=== PATIENT | female | born 1990 | race Asian ===

== ENCOUNTER 2021-09-13 20:55 | Inpatient (IN) | payer BC ==
[2021-09-13] MEDS ORDERED: BETAMET ACET/BETAMET NA PH 30 MG/5 ML VIAL IM ONE (21:38)
[2021-09-13] MEDS: LABETALOL HCL 100 MG TABLET (FP) PO SCH (22:00)
[2021-09-13 22:25] LABS: BASO % 0.3 % (0-2.0); EOS % 2.8 % (0-4.5); HEMATOCRIT 35.9 % (32.4-45.2); HEMOGLOBIN 12.4 GM/dL (10.7-15.3); LYMPH % 22.6 % (8-40); MCH 30.7 pg (25.7-33.7); MCHC 34.5 g/dl (32.0-36.0); MEAN PLT VOLUME 7.8 fl (7.5-11.1); MONO % 8.2 % (3.8-10.2); NEUT % 66.1 % (42.8-82.8); PLATELET COUNT 231 10^3/uL (134-434); RBC 4.03 M/mm3 (3.60-5.2); RDW 14.8 % (11.6-15.6); WHITE BLOOD COUNT 7.6 K/mm3 (4.0-10.0)
[2021-09-13 22:33] VITALS: BMI 27.0
[2021-09-13 22:35] LABS: ACTIVATED PTT 32.2 SECONDS (25.2-36.5); INR 0.9 (0.83-1.09); PROTHROMBIN TIME (PATIENT) 10.3 SEC (9.7-13.0)
[2021-09-13 23:01] LABS: BLOOD UREA NITROGEN 10.9 mg/dL (7-18); CALCIUM 8.6 mg/dL (8.5-10.1)
[2021-09-13 23:04] LABS: CREATININE 0.6 mg/dL (0.55-1.3)
[2021-09-13] MEDS ORDERED: BETAMET ACET/BETAMET NA PH 30 MG/5 ML VIAL IM SCH (23:23)
[2021-09-14 02:04] LABS: HIV INTERPRETATION NEGATIVE (NEGATIVE)
[2021-09-14 07:45] LABS: BASO % 0.1 % (0-2.0); EOS % 0.2 % (0-4.5); HEMATOCRIT 37.1 % (32.4-45.2); HEMOGLOBIN 12.2 GM/dL (10.7-15.3); LYMPH % 14.6 % (8-40); MCH 29.6 pg (25.7-33.7); MCHC 32.8 g/dl (32.0-36.0); MEAN CELL VOLUME 90.4 fl (80-96); MEAN PLT VOLUME 8.3 fl (7.5-11.1); MONO % 1.7 % (3.8-10.2); NEUT % 83.4 % (42.8-82.8); PLATELET COUNT 227 10^3/uL (134-434)
[2021-09-14] MEDS ORDERED: INSULIN (LEVEMIR) 100 UNITS/ML UNITS SQ ONE (09:15)
[2021-09-14] MEDS ORDERED: INSULIN (NOVOLOG) ASPART 100 UNITS/ML 10ML VIAL SQ ONE ×5 (09:30→23:40)
[2021-09-14] MEDS: LABETALOL HCL 100 MG TABLET (FP) PO SCH ×2 (09:46→21:21)
[2021-09-14] MEDS ORDERED: INSULIN SLIDING SCALE (NOVOLOG) 1 VIAL SQ ONE ×2 (14:20→15:27)
[2021-09-14] MEDS ORDERED: BETAMET ACET/BETAMET NA PH 30 MG/5 ML VIAL IM SCH (20:00)
[2021-09-14] MEDS ORDERED: INSULIN (LEVEMIR) 100 UNITS/ML UNITS SQ SCH (22:00)
[2021-09-15] MEDS: INSULIN (LEVEMIR) 100 UNITS/ML UNITS SQ SCH ×2 (07:49→21:50)
[2021-09-15] MEDS: INSULIN (NOVOLOG) ASPART 100 UNITS/ML 10ML VIAL SQ SCH ×3 (08:29→17:05)
[2021-09-15] MEDS: LABETALOL HCL 100 MG TABLET (FP) PO SCH ×2 (09:33→21:51)
[2021-09-15] MEDS ORDERED: INSULIN (NOVOLOG) ASPART 100 UNITS/ML 10ML VIAL SQ ONE ×2 (10:34→13:52)
[2021-09-16] MEDS: INSULIN (LEVEMIR) 100 UNITS/ML UNITS SQ SCH (07:24)
[2021-09-16] MEDS: INSULIN (NOVOLOG) ASPART 100 UNITS/ML 10ML VIAL SQ SCH (08:13)
[2021-09-16] MEDS: LABETALOL HCL 100 MG TABLET (FP) PO SCH (10:10)
[2021-09-16 10:11] VITALS: BP 131/73; PULSE 97; TEMP 98
== END 2021-09-16 10:26 | disposition home or self-care (01) | DRG 832 ==
LOC: JLDR 20:55 → J3W 23:00
PROVIDERS: ADMIT Obstetrics & Gynecology Maternal & Fetal Medicine; ATTEND Obstetrics & Gynecology Maternal & Fetal Medicine
DX: O16.3 Unspecified maternal hypertension, third trimester (principal); O24.913 Unspecified diabetes mellitus in pregnancy, third trimester; O30.033 Twin pregnancy, monochorionic/diamniotic, third trimester; Z3A.34 34 weeks gestation of pregnancy; Z79.4 Long term (current) use of insulin
CPT/HCPCS: 36415; 80048; 82962; 85025; 85610; 85730; 86780; 86850; 86900; 86901; 87389; 96372; C9803; U0003; U0005

== ENCOUNTER 2021-09-20 17:35 | Inpatient (IN) | payer BC ==
[2021-09-20] MEDS: DEXTROSE 5%-LACTATED RINGERS 1,000 ML IV SCH (20:20)
[2021-09-20] MEDS ORDERED: LABETALOL HCL 100 MG TABLET (FP) ONE (20:27)
[2021-09-20] MEDS: LABETALOL HCL 100 MG TABLET (FP) PO SCH (20:30)
[2021-09-20 20:39] LABS: BASO % 0.2 % (0-2.0); EOS % 2.9 % (0-4.5); HEMATOCRIT 34.1 % (32.4-45.2); HEMOGLOBIN 11.3 GM/dL (10.7-15.3); LYMPH % 25.5 % (8-40); MCH 29.8 pg (25.7-33.7); MCHC 33.1 g/dl (32.0-36.0); MEAN CELL VOLUME 90.1 fl (80-96); MEAN PLT VOLUME 8.4 fl (7.5-11.1); MONO % 8.3 % (3.8-10.2); NEUT % 63.1 % (42.8-82.8); PLATELET COUNT 205 10^3/uL (134-434); RBC 3.78 M/mm3 (3.60-5.2); RDW 14.8 % (11.6-15.6); WHITE BLOOD COUNT 8.2 K/mm3 (4.0-10.0)
[2021-09-20 20:48] LABS: INR 0.92 (0.83-1.09); PROTHROMBIN TIME (PATIENT) 10.6 SEC (9.7-13.0)
[2021-09-20 20:51] LABS: ACTIVATED PTT 29.8 SECONDS (25.2-36.5)
[2021-09-20 21:14] LABS: CALCIUM 9.3 mg/dL (8.5-10.1)
[2021-09-20 21:17] LABS: CREATININE 0.6 mg/dL (0.55-1.3)
[2021-09-20 21:42] LABS: BLOOD UREA NITROGEN 11.5 mg/dL (7-18)
[2021-09-21] MEDS: LABETALOL HCL 100 MG TABLET (FP) PO SCH ×4 (02:10→22:14)
[2021-09-21] MEDS ORDERED: INSULIN (NOVOLOG) ASPART 100 UNITS/ML 10ML VIAL SQ SCH (09:00)
[2021-09-21] MEDS ORDERED: INSULIN SLIDING SCALE (NOVOLOG) 1 VIAL SQ ONE (09:11)
[2021-09-21] MEDS: INSULIN (NOVOLOG) ASPART 100 UNITS/ML 10ML VIAL SQ SCH ×2 (09:13→17:01)
[2021-09-21] MEDS: INSULIN (LEVEMIR) 100 UNITS/ML UNITS SQ SCH (09:13)
[2021-09-22] MEDS: INSULIN (NOVOLOG) ASPART 100 UNITS/ML 10ML VIAL SQ SCH ×2 (08:36→16:40)
[2021-09-22] MEDS: INSULIN (LEVEMIR) 100 UNITS/ML UNITS SQ SCH (09:11)
[2021-09-22] MEDS: LABETALOL HCL 100 MG TABLET (FP) PO SCH ×2 (09:17→21:48)
[2021-09-23] MEDS: INSULIN (NOVOLOG) ASPART 100 UNITS/ML 10ML VIAL SQ SCH ×2 (08:21→16:58)
[2021-09-23] MEDS: INSULIN (LEVEMIR) 100 UNITS/ML UNITS SQ SCH (09:04)
[2021-09-23] MEDS: LABETALOL HCL 100 MG TABLET (FP) PO SCH ×2 (09:10→21:14)
[2021-09-24 08:19] LABS: BASO % 0.5 % (0-2.0); EOS % 3.1 % (0-4.5); HEMATOCRIT 31.6 % (32.4-45.2); HEMOGLOBIN 10.8 GM/dL (10.7-15.3); MCH 30.6 pg (25.7-33.7); MCHC 34.1 g/dl (32.0-36.0); MEAN CELL VOLUME 89.8 fl (80-96); MEAN PLT VOLUME 7.9 fl (7.5-11.1); MONO % 7.4 % (3.8-10.2); PLATELET COUNT 166 10^3/uL (134-434); RBC 3.52 M/mm3 (3.60-5.2); RDW 14.8 % (11.6-15.6); WHITE BLOOD COUNT 7.4 K/mm3 (4.0-10.0)
[2021-09-24] MEDS: INSULIN (NOVOLOG) ASPART 100 UNITS/ML 10ML VIAL SQ SCH ×2 (08:26→17:21)
[2021-09-24] MEDS: INSULIN (LEVEMIR) 100 UNITS/ML UNITS SQ SCH (08:27)
[2021-09-24] MEDS: LABETALOL HCL 200 MG TABLET (FP) PO SCH ×2 (08:31→19:47)
[2021-09-24] MEDS ORDERED: FERROUS SO4 325 MG TABLET (FP) PO ONE (08:38)
[2021-09-24 08:51] LABS: ALBUMIN 2.3 g/dl (3.4-5.0); BLOOD UREA NITROGEN 7.2 mg/dL (7-18); CALCIUM 8.7 mg/dL (8.5-10.1)
[2021-09-24 08:54] LABS: CREATININE 0.6 mg/dL (0.55-1.3)
[2021-09-24 08:56] LABS: BILIRUBIN,TOTAL 0.3 mg/dL (0.2-1); TOT PROT 5.6 g/dl (6.4-8.2)
[2021-09-24] MEDS: PRENATAL VITAMINS W/ FOLIC ACID TABLET (FP) PO SCH (09:49)
[2021-09-25 00:48] VITALS: BMI 27.0
[2021-09-25 02:58] LABS: INR 0.92 (0.83-1.09); PROTHROMBIN TIME (PATIENT) 10.6 SEC (9.7-13.0)
[2021-09-25 03:00] LABS: ACTIVATED PTT 32.4 SECONDS (25.2-36.5)
[2021-09-25 04:55] LABS: HIV INTERPRETATION NEGATIVE (NEGATIVE)
[2021-09-25] MEDS ORDERED: ELECTROLYTE-148 SOLN 500 ML IV SCH (06:00)
[2021-09-25] MEDS ORDERED: CITRIC ACID/SODIUM CITRATE 30 ML UNIT-DOSE CUP PO ONE ×3 (06:00→08:19)
[2021-09-25] MEDS ORDERED: morphine SULFATE/PF 1 MG/2 ML (2cc Syringe - QUVA) ONE (08:04)
[2021-09-25] MEDS ORDERED: EPINEPHrine 1:10,000 (P-F SYR) 1 MG/10 ML DISP.SYRIN ONE (08:26)
[2021-09-25] MEDS: ELECTROLYTE-148 SOLN 500 ML IV SCH (08:30)
[2021-09-25] MEDS ORDERED: PROPOFOL 20 ML ONE (10:04)
[2021-09-25 10:24] LABS: CORD HCO3 25.1 mmHg (20-29); CORD PCO2 62.5 mmHg (30-78); CORD pH 7.222 (7.14-7.44)
[2021-09-25 10:28] LABS: CORD BASE EXCESS -2.1 mmol/L (0-2); CORD HCO3 25.7 mmHg (20-29); CORD PCO2 56.2 mmHg (30-78); CORD pH 7.278 (7.14-7.44)
[2021-09-25 10:33] LABS: CORD BASE EXCESS -3.8 mmol/L (0-2); CORD HCO3 22.1 mmHg (20-29); CORD PCO2 43.3 mmHg (30-78); CORD pH 7.326 (7.14-7.44)
[2021-09-25 10:35] LABS: CORD BASE EXCESS -4.4 mmol/L (0-2); CORD HCO3 22.3 mmHg (20-29); CORD PCO2 46.5 mmHg (30-78); CORD pH 7.298 (7.14-7.44)
[2021-09-25] MEDS ORDERED: METHYLERGONOVINE MALEATE 0.2 MG/1 ML AMP IM PRN (10:42)
[2021-09-25] MEDS ORDERED: MAGNESIUM 4GM/H20 - 4 GM/100 ML IVPB IVPB SCH (11:00)
[2021-09-25] MEDS ORDERED: ONDANSETRON 4 MG/2 ML VIAL IVPUSH PRN (11:14)
[2021-09-25] MEDS: MAGNESIUM SULFATE 20GM/500ML - 20 GM/500 ML INFUS.BAG IVPB SCH ×2 (11:45→22:00)
[2021-09-25] MEDS: LABETALOL HCL 200 MG TABLET (FP) PO SCH ×2 (12:29→20:42)
[2021-09-25] MEDS: INSULIN (LEVEMIR) 100 UNITS/ML UNITS SQ SCH (12:29)
[2021-09-25] MEDS: INSULIN (NOVOLOG) ASPART 100 UNITS/ML 10ML VIAL SQ SCH ×2 (12:30→17:30)
[2021-09-25] MEDS: PRENATAL VITAMINS W/ FOLIC ACID TABLET (FP) PO SCH (12:31)
[2021-09-25] MEDS ORDERED: ONDANSETRON 4 MG/2 ML VIAL ONE (14:56)
[2021-09-25] MEDS ORDERED: PROMETHAZINE HCL 25 MG/1 ML VIAL IVPB ONE (16:55)
[2021-09-25] MEDS ORDERED: DEXTROSE 5%-LACTATED RINGERS 1,000 ML IV SCH (20:05)
[2021-09-25] MEDS ORDERED: MAGNESIUM SULFATE 20GM/500ML - 20 GM/500 ML INFUS.BAG ONE (22:07)
[2021-09-26 06:16] LABS: BASO % 0.2 % (0-2.0); EOS % 0.7 % (0-4.5); HEMATOCRIT 26.3 % (32.4-45.2); HEMOGLOBIN 8.6 GM/dL (10.7-15.3); LYMPH % 12.3 % (8-40); MCH 29.4 pg (25.7-33.7); MCHC 32.5 g/dl (32.0-36.0); MEAN CELL VOLUME 90.6 fl (80-96); MEAN PLT VOLUME 8.1 fl (7.5-11.1); NEUT % 79.8 % (42.8-82.8); PLATELET COUNT 167 10^3/uL (134-434); RBC 2.91 M/mm3 (3.60-5.2); RDW 14.7 % (11.6-15.6); WHITE BLOOD COUNT 13.9 K/mm3 (4.0-10.0)
[2021-09-26] MEDS: ELECTROLYTE-148 SOLN 500 ML IV SCH (08:16)
[2021-09-26] MEDS: LABETALOL HCL 200 MG TABLET (FP) PO SCH (09:30)
[2021-09-26] MEDS: OXYTOCIN 20 UNITS in 0.9% NS 20 UNIT/1,000 ML INFUS.BAG IV SCH ×2 (09:31→11:02)
[2021-09-26] MEDS ORDERED: oxyCODONE HCL 5 MG TABLET ONE (09:55)
[2021-09-26] MEDS ORDERED: FERROUS SO4 325 MG TABLET (FP) ONE (09:56)
[2021-09-26] MEDS ORDERED: PRENATAL VITAMINS W/ FOLIC ACID TABLET (FP) PO ONE (09:56)
[2021-09-26] MEDS: FERROUS SO4 325 MG TABLET (FP) PO SCH ×2 (10:10→21:23)
[2021-09-26] MEDS: oxyCODONE HCL 5 MG TABLET PO PRN ×3 (10:10→21:23)
[2021-09-26] MEDS: PRENATAL VITAMINS W/ FOLIC ACID TABLET (FP) PO SCH (10:10)
[2021-09-26] MEDS: SIMETHICONE 80 MG TAB.CHEW (FP) PO PRN ×3 (10:10→21:23)
[2021-09-26] MEDS ORDERED: BISACODYL 10 MG SUPP.RECT RC PRN (10:43)
[2021-09-26] MEDS ORDERED: INSULIN (NOVOLOG) ASPART 100 UNITS/ML 10ML VIAL ONE (10:50)
[2021-09-26] MEDS: INSULIN (LEVEMIR) 100 UNITS/ML UNITS SQ SCH (11:00)
[2021-09-26] MEDS: INSULIN (NOVOLOG) ASPART 100 UNITS/ML 10ML VIAL SQ SCH ×2 (11:00→16:56)
[2021-09-26] MEDS: DEXTROSE 5%-LACTATED RINGERS 1,000 ML IV SCH (11:04)
[2021-09-26] MEDS: ACETAMINOPHEN 325 MG TABLET (FP) PO PRN (18:14)
[2021-09-27] MEDS: SIMETHICONE 80 MG TAB.CHEW (FP) PO PRN ×2 (03:31→20:00)
[2021-09-27] MEDS: oxyCODONE HCL 5 MG TABLET PO PRN ×3 (06:36→20:00)
[2021-09-27] MEDS: INSULIN (LEVEMIR) 100 UNITS/ML UNITS SQ SCH (08:00)
[2021-09-27] MEDS ORDERED: INSULIN SLIDING SCALE (NOVOLOG) 1 VIAL SQ ONE (08:50)
[2021-09-27] MEDS: ACETAMINOPHEN 325 MG TABLET (FP) PO PRN ×3 (08:58→22:00)
[2021-09-27] MEDS: INSULIN (NOVOLOG) ASPART 100 UNITS/ML 10ML VIAL SQ SCH ×2 (08:58→17:57)
[2021-09-27] MEDS: PRENATAL VITAMINS W/ FOLIC ACID TABLET (FP) PO SCH (10:15)
[2021-09-27] MEDS: FERROUS SO4 325 MG TABLET (FP) PO SCH ×2 (10:15→21:07)
[2021-09-28] MEDS: oxyCODONE HCL 5 MG TABLET PO PRN ×4 (06:22→21:57)
[2021-09-28 07:26] LABS: BASO % 0.3 % (0-2.0); EOS % 2.2 % (0-4.5); HEMATOCRIT 24.7 % (32.4-45.2); HEMOGLOBIN 8.2 GM/dL (10.7-15.3); LYMPH % 17.3 % (8-40); MCH 30.4 pg (25.7-33.7); MCHC 33.2 g/dl (32.0-36.0); MEAN CELL VOLUME 91.5 fl (80-96); MEAN PLT VOLUME 7.5 fl (7.5-11.1); MONO % 6.6 % (3.8-10.2); NEUT % 73.6 % (42.8-82.8); PLATELET COUNT 219 10^3/uL (134-434); RDW 14.5 % (11.6-15.6); WHITE BLOOD COUNT 12.4 K/mm3 (4.0-10.0)
[2021-09-28] MEDS ORDERED: INSULIN SLIDING SCALE (NOVOLOG) 1 VIAL SQ ONE (08:40)
[2021-09-28] MEDS: INSULIN (NOVOLOG) ASPART 100 UNITS/ML 10ML VIAL SQ SCH ×2 (08:44→17:23)
[2021-09-28] MEDS: INSULIN (LEVEMIR) 100 UNITS/ML UNITS SQ SCH (08:45)
[2021-09-28] MEDS: ACETAMINOPHEN 325 MG TABLET (FP) PO PRN ×2 (08:46→20:28)
[2021-09-28] MEDS: SIMETHICONE 80 MG TAB.CHEW (FP) PO PRN ×3 (08:47→20:28)
[2021-09-28] MEDS: FERROUS SO4 325 MG TABLET (FP) PO SCH ×2 (09:34→22:00)
[2021-09-28] MEDS: PRENATAL VITAMINS W/ FOLIC ACID TABLET (FP) PO SCH (09:34)
[2021-09-28] MEDS ORDERED: BENZOCAINE/MENTH/CETYLPYRD CL 1 EACH LOZENGE MM PRN (18:28)
[2021-09-28 23:02] VITALS: TEMP 98.3
[2021-09-29] MEDS: oxyCODONE HCL 5 MG TABLET PO PRN (08:22)
[2021-09-29] MEDS: SIMETHICONE 80 MG TAB.CHEW (FP) PO PRN ×2 (08:22→12:31)
[2021-09-29] MEDS: PRENATAL VITAMINS W/ FOLIC ACID TABLET (FP) PO SCH (10:46)
[2021-09-29] MEDS: FERROUS SO4 325 MG TABLET (FP) PO SCH (10:46)
[2021-09-29] MEDS: ACETAMINOPHEN 325 MG TABLET (FP) PO PRN (12:31)
[2021-09-29 12:44] VITALS: BP 136/89; PULSE 90
== END 2021-09-29 13:30 | disposition home or self-care (01) | DRG 788 ==
LOC: JLDR 17:35 → J3W 22:12 → JLDR 09-25 03:51 → J3W 09-26 12:10
PROVIDERS: ADMIT Obstetrics & Gynecology Maternal & Fetal Medicine; ATTEND Obstetrics & Gynecology Maternal & Fetal Medicine
PROC: 10D00Z1 Extraction of Products of Conception, Low, Open Approach (ICD-10-PCS; principal; 2021-09-25)
DX: O30.033 Twin pregnancy, monochorionic/diamniotic, third trimester (principal); O24.92 Unspecified diabetes mellitus in childbirth; O14.94 Unspecified pre-eclampsia, complicating childbirth; Z3A.35 35 weeks gestation of pregnancy; Z37.2 Twins, both liveborn; Z79.4 Long term (current) use of insulin
CPT/HCPCS: 36415; 36600; 80048; 80053; 82803; 82962; 83735; 84450; 84460; 85025; 85610; 85730; 86780; 86850; 86900; 86901; 87081; 87389; 88307-TC; C9803; U0003; U0005

== ENCOUNTER 2023-08-30 10:47 | Inpatient (IN) | payer BC ==
[2023-08-30] MEDS ORDERED: INSULIN (NOVOLOG) ASPART 100 UNITS/ML 10ML VIAL SQ ONE (12:43)
[2023-08-30] MEDS ORDERED: SODIUM CHLORIDE 500 ML IV STA (12:45)
[2023-08-30] MEDS ORDERED: IRON SUCROSE INJECTION 300 MG in SODIUM CHLORIDE 235 ML IVPB ONE (14:30)
[2023-08-30 14:43] LABS: EPI CELLS >36 /uL (0-25.1); HYALINE CASTS 1 /uL (0-3.1); URINE APPEARANCE CLEAR; URINE BACTERIA 2163 /uL (0-1359); URINE BILIRUBIN NEGATIVE (NEGATIVE); URINE COLOR YELLOW; URINE GLUCOSE (UA) 1+ (NEGATIVE); URINE KETONE NEGATIVE (NEGATIVE); URINE LEUK ESTERASE NEGATIVE (NEGATIVE); URINE NITRITE NEGATIVE (NEGATIVE); URINE PROTEIN 1+ (NEGATIVE); URINE RBC 44 /uL (0-23.9); URINE UROBILINOGEN 0.2 mg/dL (0.2-1.0); URINE WBC 31 /uL (0-25.8)
[2023-08-30 16:53] VITALS: BMI 27.9
[2023-08-30] MEDS ORDERED: DEXTROSE 5%-LACTATED RINGERS 1,000 ML IV SCH (17:00)
[2023-08-30] MEDS ORDERED: ONDANSETRON 4 MG/2 ML VIAL ONE ×2 (17:11→20:32)
[2023-08-30] MEDS ORDERED: PHENYLEPHRINE HCL 10 MG/1 ML SINGLE DOSE VIAL ONE (17:11)
[2023-08-30] MEDS ORDERED: morphine SULFATE/PF 1 MG/2 ML (2cc Syringe - QUVA) ONE (17:11)
[2023-08-30] MEDS ORDERED: OXYTOCIN 10 UNITS/ML VIAL ONE (17:11)
[2023-08-30] MEDS ORDERED: KETOROLAC TROMETHAMINE 30 MG/1 ML VIAL ONE (17:11)
[2023-08-30] MEDS ORDERED: FENTANYL CITRATE/PF 50 MCG/ML VIAL ONE ×2 (17:12→19:05)
[2023-08-30] MEDS ORDERED: ceFAZolin SODIUM 1 GM VIAL ONE (17:12)
[2023-08-30 18:47] LABS: CORD HCO3 23.1 mmHg (20-29); CORD PCO2 72.4 mmHg (30-78); CORD pH 7.122 (7.14-7.44)
[2023-08-30 18:50] LABS: CORD BASE EXCESS -5.5 mmol/L (0-2); CORD HCO3 22.7 mmHg (20-29); CORD PCO2 54.8 mmHg (30-78); CORD pH 7.235 (7.14-7.44)
[2023-08-30 19:35] LABS: HIV INTERPRETATION NEGATIVE (NEGATIVE)
[2023-08-30] MEDS: OXYTOCIN 20 UNITS in 0.9% NS 20 UNIT/1,000 ML INFUS.BAG IV SCH (19:45)
[2023-08-30] MEDS ORDERED: morphine SULFATE 4 MG/ML VIAL IVPB PRN (20:21)
[2023-08-30] MEDS: ONDANSETRON 4 MG/2 ML VIAL IVPUSH PRN (20:35)
[2023-08-31] MEDS ORDERED: ONDANSETRON 4 MG/2 ML VIAL ONE ×2 (00:01→00:03)
[2023-08-31] MEDS: ONDANSETRON 4 MG/2 ML VIAL IVPUSH PRN (00:05)
[2023-08-31] MEDS: OXYTOCIN 20 UNITS in 0.9% NS 20 UNIT/1,000 ML INFUS.BAG IV SCH (04:57)
[2023-08-31] MEDS ORDERED: oxyCODONE HCL 5 MG TABLET PO PRN (08:11)
[2023-08-31 08:59] LABS: BASO % 0.3 % (0-2.0); EOS % 0.2 % (0-4.5); HEMATOCRIT 16.8 % (32.4-45.2); LYMPH % 11.3 % (8-40); MCH 21.3 pg (25.7-33.7); MCHC 31.3 g/dl (32.0-36.0); MEAN CELL VOLUME 68.2 fl (80-96); MEAN PLT VOLUME 7.5 fl (7.5-11.1); MONO % 6.6 % (3.8-10.2); NEUT % 81.6 % (42.8-82.8); PLATELET COUNT 202 10^3/uL (134-434); RBC 2.46 M/mm3 (3.60-5.2); RDW 19.2 % (11.6-15.6); WHITE BLOOD COUNT 14.7 K/mm3 (4.0-10.0)
[2023-08-31 09:04] LABS: HEMOGLOBIN 5.2 GM/dL (10.7-15.3)
[2023-08-31] MEDS: DOCUSATE SODIUM 100 MG CAPSULE (FP) PO SCH ×3 (11:49→21:58)
[2023-08-31] MEDS: FERROUS SO4 325 MG TABLET (FP) PO SCH ×2 (11:49→18:23)
[2023-08-31] MEDS: oxyCODONE HCL 5 MG TABLET PO PRN ×3 (15:13→23:36)
[2023-08-31] MEDS: ACETAMINOPHEN 325 MG TABLET (FP) PO PRN (16:58)
[2023-08-31] MEDS ORDERED: BISACODYL 10 MG SUPP.RECT RC PRN (20:11)
[2023-08-31] MEDS ORDERED: ALBUTEROL SO4 0.083% IH SOL 2.5 MG/3 ML VIAL.NEB. NEB PRN (23:54)
[2023-09-01] MEDS ORDERED: INSULIN (LEVEMIR) 100 UNITS/ML UNITS SQ ONE ×2 (00:15→10:10)
[2023-09-01] MEDS: FLUTICASONE/SALMETEROL (WIXELA) 100 MCG/50 MCG DISKUS IH SCH ×3 (00:55→23:36)
[2023-09-01] MEDS: ACETAMINOPHEN 325 MG TABLET (FP) PO PRN (03:13)
[2023-09-01] MEDS: oxyCODONE HCL 5 MG TABLET PO PRN ×2 (04:06→07:26)
[2023-09-01] MEDS ORDERED: ONDANSETRON 4 MG/2 ML VIAL ONE (04:37)
[2023-09-01] MEDS: ONDANSETRON 4 MG/2 ML VIAL IVPUSH PRN (04:44)
[2023-09-01] MEDS: DOCUSATE SODIUM 100 MG CAPSULE (FP) PO SCH ×3 (06:06→22:55)
[2023-09-01] MEDS ORDERED: INSULIN (NOVOLOG) ASPART 100 UNITS/ML 10ML VIAL SQ ONE (06:33)
[2023-09-01] MEDS ORDERED: METOCLOPRAMIDE HCL 10 MG TABLET (FP) PO ONE (06:56)
[2023-09-01] MEDS ORDERED: INSULIN ASPART SLIDING SCALE (NOVOLOG) 1 VIAL SQ ONE (07:21)
[2023-09-01 09:19] LABS: BASO % 0.1 % (0-2.0); EOS % 0.1 % (0-4.5); LYMPH % 5.4 % (8-40); MCH 21.2 pg (25.7-33.7); MCHC 31.1 g/dl (32.0-36.0); MEAN CELL VOLUME 68.1 fl (80-96); MEAN PLT VOLUME 7.3 fl (7.5-11.1); MONO % 4.9 % (3.8-10.2); NEUT % 89.5 % (42.8-82.8); PLATELET COUNT 312 10^3/uL (134-434); RBC 3.09 M/mm3 (3.60-5.2); RDW 20.1 % (11.6-15.6); WHITE BLOOD COUNT 19.2 K/mm3 (4.0-10.0)
[2023-09-01 09:30] LABS: POTASSIUM 4.3 mmol/L (3.5-5.1)
[2023-09-01 09:31] LABS: HEMOGLOBIN 6.5 GM/dL (10.7-15.3)
[2023-09-01 09:32] LABS: CALCIUM 7.6 mg/dL (8.5-10.1)
[2023-09-01 09:33] LABS: BLOOD UREA NITROGEN 9.8 mg/dL (7-18)
[2023-09-01 09:36] LABS: CREATININE 0.5 mg/dL (0.55-1.3)
[2023-09-01] MEDS: FERROUS SO4 325 MG TABLET (FP) PO SCH ×3 (09:36→19:07)
[2023-09-01 09:37] LABS: BILIRUBIN,TOTAL 0.2 mg/dL (0.2-1); TOT PROT 4.8 g/dl (6.4-8.2)
[2023-09-01 09:42] LABS: ALBUMIN 1.6 g/dl (3.4-5.0)
[2023-09-01] MEDS ORDERED: SIMETHICONE 80 MG TAB.CHEW (FP) PO PRN (10:05)
[2023-09-01] MEDS: METOCLOPRAMIDE HCL INJECTION 10 MG/2 ML VIAL IVPUSH PRN ×2 (13:46→23:24)
[2023-09-01] MEDS ORDERED: PROMETHAZINE HCL 25 MG/1 ML VIAL IVPB ONE (15:50)
[2023-09-01] MEDS ORDERED: DEXTROSE 5%-0.45% SALINE 1,000 ML IV SCH (19:00)
[2023-09-01] MEDS ORDERED: ACETAMINOPHEN 1000 MG/100 ML BAG IVPB ONE (20:06)
[2023-09-02] MEDS ORDERED: morphine SULFATE 4 MG/ML VIAL IVPUSH ONE (00:45)
[2023-09-02 04:40] VITALS: BP 140/83; PULSE 98; RESP 14; TEMP 98.1
== END 2023-09-02 04:45 | disposition short-term general hospital (02) | DRG 787 ==
LOC: JDEL 10:47 → JLDR 15:45 → J3W 08-31 01:09
PROVIDERS: ADMIT Obstetrics & Gynecology Maternal & Fetal Medicine; ATTEND Obstetrics & Gynecology Maternal & Fetal Medicine
PROC: 10D00Z1 Extraction of Products of Conception, Low, Open Approach (ICD-10-PCS; principal; 2023-08-30)
DX: O40.3XX0 Polyhydramnios, third trimester, not applicable or unspecified (principal); K56.699 Other intestinal obstruction unspecified as to partial versus complete obstruction; O24.92 Unspecified diabetes mellitus in childbirth; O14.94 Unspecified pre-eclampsia, complicating childbirth; O36.63X0 Maternal care for excessive fetal growth, third trimester, not applicable or unspecified; O76 Abnormality in fetal heart rate and rhythm complicating labor and delivery; O90.89 Other complications of the puerperium, not elsewhere classified; O34.219 Maternal care for unspecified type scar from previous cesarean delivery; Z3A.36 36 weeks gestation of pregnancy; Z37.0 Single live birth
CPT/HCPCS: 36415; 36600; 59025; 74018-TC-FY; 74177-TC; 80053; 81003; 82570; 82803; 82962; 84156; 85025; 87389; 87635; 88304-TC; 88307-TC; 94640; J1756; Q9967